=== PATIENT | female | born 1985 | race Two or more races ===

== ENCOUNTER 2016-09-04 04:35 | Inpatient (IN) | payer MEDICAID ==
[~2016-09-04] VITALS: Ht 162.6 cm; Wt 79.8 kg
[~2016-09-04 04:35] MED LIST: Docusate Sodium PO; IBUP800T28 PO; OXYC1TAB24 PO
[2016-09-04] MEDS ORDERED: Oxytocin 10 Unit/mL Inj IM PRN ×2 (05:20→10:55)
[2016-09-04] MEDS ORDERED: Hemorrhage Kit, Post Partum XX ONE ×2 (05:20→10:55)
[2016-09-04] MEDS ORDERED: fentaNYL-PF 50 mCg/mL 2 mL Inj IVPUSH PRN (05:20)
[2016-09-04] MEDS ORDERED: Methylergonovine 0.2 mg/mL Inj IM PRN ×2 (05:20→10:55)
[2016-09-04] MEDS ORDERED: Oxytocin 30 Units/500 mL LR 30 UNITS in IV Premix 1 EACH IV PRN ×3 (05:20→14:40)
[2016-09-04] MEDS ORDERED: Lactated Ringer's 1,000 ML IV PRN (05:20)
[2016-09-04] MEDS ORDERED: Carboprost 250 mCg/mL Inj IM PRN ×2 (05:20→10:55)
[2016-09-04] MEDS ORDERED: Sodium Chloride LOK Flush 10 mL Syringe IVFLUSH PRN (05:20)
[2016-09-04] MEDS ORDERED: Ondansetron 2 mg/mL 2 mL Inj IVPUSH PRN (05:20)
[2016-09-04] MEDS ORDERED: PREN-107 PO (05:25)
[2016-09-04 06:56] LABS: Mean Corpuscular Volume 90.4 fL (81-100)
--- NOTE | 2016-09-04 07:18 | PCM.HPOB ---
Subjective Date of Service: Sep 04, 2016 Referring Provider: Admitting Physician: Danny Almonte MD Primary Care Physician: Nopcp Attending Physician: Danny Almonte MD Chief Complaint Contractions History of Present History of Present Illness The patient is a 31-year-old female at 40 weeks 3 days with EDC of who presents in active labor. Patient states she started having mild contractions around 9 pm last night. She went to bed and woke up at 4 am this morning from more contractions and mild back and pelvic pain. Upon arrival to L& D her cervix has been dilated to 5 cm. Her last was uncomplicated and she delivered via . She did, however, suffer a third-degree perineal laceration. This last has been so far uncomplicated. Obstetrical Complications: None Past Medical History Hx Tobacco Use: No Hx Alcohol Use: Yes Hx Substance Use: No Past Family History Living Arrangement: with Family Allergy Coded Allergies: No Known Allergies (Unverified , 09/04/16) Exam Vital Signs Vital signs stable Exam FHR baseline 130's with moderate variability, accelerations present, no decelerations, UC's Q 2 min. Constitutional: Well-developed, Well-nourished HEENT: Atraumatic, Scleral Anicteric, Mucous Membr Moist/[place] Lungs: Clear to Auscultation, Normal Air Movement Heart: Exam Unremarkable, Regular Rate/Rhythm Abdomen: Gravid, No tenderness Lymphatic: Normal: Neck Palpation of Nodes Extremities: Pulses Palpable x4, Warm, No Edema Neurological/Psychiatric: Alert, Oriented X3, Cooperative, No Acute Distress Neuro: Grossly Neurologically Intact Labs/Diagnostics Labs labs revealed blood type A positive, antibody screen negative, varicella immune, rubella immune, RPR nonreactive, hepatitis B antigen negative , HIV nonreactive, and GBS negative. Maternal Blood Type: A Hx Rho(D) Immune Globulin: No Group B Strep Results: Negative Previous Infant with GBS: No Rubella: Immune Lab History: Negative for: Hx HIV OB Intrapartum Assessment/Plan Assessment The patient is a 31-year-old female at 40 weeks 3 days with EDC of who presents in active labor. heart rate tracing reassuring. 1. Admit to L&D. 2. Patient does not want epidural for pain control (h/o lower extremities numbness and back pain x 3 months after epidural use during her first labor). 3. Anticipate . Attending Statement The patient was seen and examined together with Dr. Kandice Hoffman DO on 2016 and I agree with the history, exam and plan as outlined in the note above. Kandice Hoffman DO Sep 04, 2016 07:18 YUE FERGUSON DO Sep 04, 2016 07:20 Donell Bravo MD Sep 04, 2016 11:03
[2016-09-04] MEDS ORDERED: Lactated Ringer's 1,000 ML IV SCH ×3 (09:43→10:53)
--- NOTE | 2016-09-04 09:45 | PCM.PNOBIP ---
Subjective Date of Service Sep 04, 2016 Delivery plan: Spontaneous Vaginal Delivery Subjective Patient has no complaints. Reports that she is not feeling contractions now. Gastrointestinal: No N/V Activity: Ambulating Independently Group B Strep Results: Negative Rubella: Immune Blood Type: A RH Type: Positive Labs Laboratory Tests 09/04/16 06:25: White Blood Count 13.6, Red Blood Count 4.17, Hemoglobin 12.5, Hematocrit 37.7, Mean Corpuscular Volume 90.4, Mean Corpuscular Hemoglobin 30.0, Mean Corpuscular Hemoglobin Concent 33.2, Red Cell Distribution Width 14.1, Platelet Count 210 Exam Vital Signs Vital Signs Contraction frequency in minutes: MVUs: Vital Signs: VS reviewed, stable Heart Tracings Heart Tones Baseline bpm Heart Rate Variability: Moderate Heart Rate Accelleration: Absent Heart Rate Category: I Tocometry/IUPC Contraction frequency in minutes: MVUs: Sterile Vaginal Exam 5/50/-3 Vertex, Head is well applied Cervical Dilation: 5 cms Cervical Effacement: 50 % Station: -3 Exam General: Alert, Oriented X3, Cooperative, No Acute Distress OB Intrapartum Assessment/Plan Problems: (1) Postmaturity , 40-42 weeks gestation Plan: AROM clear Continue to monitor Will start Pitocin if contractions space and no cervical change. I discussed plan with patient. Status: Acute ICD Code: O48.0 Intrapartum plan: Donell Eldridge MD Sep 04, 2016 09:45
[2016-09-04] MEDS ORDERED: Lactated Ringer's 500 ML IV ONE (10:34)
--- NOTE | 2016-09-04 10:34 | PCM.HPANE ---
Patient Data Surgeon Admitting Provider:Danny Almonte MD Attending Provider:Danny Almonte MD Primary Care Physician:Nopcp Other Provider: Reason for Visit Term Labor TERM LABOR Ht/WT & BMI Body Mass Index Allergies Coded Allergies: No Known Allergies (Unverified , 09/04/16) Diabetes History Hx Diabetes?: No Medications Reported Medications Vit37/Iron/Folic Acid (Prenata Chewable Tablet)1 Each Tab.chew1 Each PO 09/04/16 Discontinued Scripts oxyCODONE-Acetaminophen 5-325 mg 1 Tab Tablet1-2 Tab PO Q4H PRN For Pain #30 TABLET Ref 0 Prov:Donell Bravo MD 04/02/15 Ibuprofen 800 Mg [id number] Mg PO Q6H PRN For Pain #60 TABLET Ref 0 Prov:Donell Bravo MD 04/02/15 [Docusate Sodium] (Colace)100 MG CAPSULE No Conflict [id number] Mg PO BID #60 CAPSULE Ref 0 Prov:Donell Bravo MD 04/02/15 History Hx of Heart Problems?: No Hx of Respiratory Problem?: No Hx Neurologic Problems?: No Hx of GI Problems?: Yes Gastrointestinal History: Positive for:: Heartburn Female Hx: Positive for:: Currently Hx Diabetes: No Hx Alcohol Use: YesHx Substance Use: No Smoking Status: Former Smoker Stop/Bang Risk Assessment Category Category 1A: Patient has history of documented sleep apnea, and HAS NOT received any narcotic, sedative or anesthesia administration during this stay. Category 1B: Patient has history of documented sleep apnea, and HAS received any narcotic , sedative or anesthesia administration during this stay Category 2: Patient has SUSPECTED Obstructive Sleep Apnea, and HAS received any narcotic , sedative or anesthesia administration during this stay. Category 3: Patient has SUSPECTED Obstructive Sleep Apnea and HAS NOT received narcotic, sedative or anesthesia administration during this stay. Category 4: Outpatient in Procedural Areas with known sleep apnea or who screen positive for High Risk via the STOP/BANG questionnaire. Meds/Labs/Diagnostics Admission Meds Current Medications Lactated Ringer's (Lr) 1,000 ml @ 125 mls/hr Q8H IV Last administered on t 10:10; Start 09/04/16 at 09:43 Labs Test 09/04/16 06:25 White Blood Count 13.6th/mm3 (3.8-10.1) Red Blood Count 4.17mil/mm3 (3.90-5.20) Hemoglobin 12.5g/dL (12.0-15.6) Hematocrit 37.7% (35.0-46.0) Mean Corpuscular Volume 90.4fL (81-100) Mean Corpuscular Hemoglobin 30.0pg (27.0-35.0) Mean Corpuscular Hemoglobin Concent 33.2% (32.0-37.0) Red Cell Distribution Width 14.1% (12.3-15.4) Platelet Count 210bil/L (150-400) Plan Impression Patient chart reviewed, patient interviewed and anesthestic plan with risks, benefits, and alternatives discussed, and informed consent obtained. Other Patient delivered while I was placing an epidural for a different patient. Rae Garcia DO Sep 04, 2016 10:34
[2016-09-04] MEDS ORDERED: EPHEDrine Sulfate 50 mg/mL Inj IVPUSH PRN (10:35)
[2016-09-04] MEDS ORDERED: fentaNYL 2 mCg/mL-Bupiv 0.125% 100 ML EPIDURAL SCH (10:35)
[2016-09-04] MEDS ORDERED: Atropine 1 mg/10 mL (Code) Syringe IVPUSH PRN (10:35)
[2016-09-04] MEDS ORDERED: oxyCODONE-Acetamin 5-325 mg Tablet PO PRN (11:00)
--- NOTE | 2016-09-04 11:11 | PCM.OBVAG ---
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 Induction: Active labor, AROM, Progressed normally through labor Findings Obstetrical Findings: Antelope (Female), Cord (3 Vessel), Presentation (Vertex) , 1 minute (8), 5 minutes (9), Placenta (Intact/Normal), Perineal Laceration (2nd degree) Analgesia/Medications Procedural Analgesia: none Procedure Details Procedure Details 31 y/o at 40 weeks gestation who presented in early labor. She had AROM at 09:40 AT 5cm. She progressed to complete dilation at 10:12 and had a precipitous delivery with the nurse at 10:17. The placenta was delivered intact with a three vessel cord at 10:33hrs. On inspection of the vagina and perineum there was a second degree perineal/vaginal laceration that was repaired in the standard fashion with 0-Vicryl suture. Instrument, needle and sponge counts were correct times two at the end of the procedure. Specimen Local Lidocaine Blood Loss & Administration Estimated Blood Loss: 300 Blood Admin during procedure: No Post Procedure Plan Post delivery Condition: Mom stable Donell Bravo MD Sep 04, 2016 11:11
[2016-09-04] MEDS ORDERED: Oxytocin 30 Units/500 mL LR Premix IV ONE (13:15)
[2016-09-04] MEDS ORDERED: Witch Hazel-Glycerin Pads TOPICAL PRN (14:40)
[2016-09-04] MEDS ORDERED: LANOlin HPA 7 Gm Ointment TOPICAL PRN (14:40)
[2016-09-04] MEDS ORDERED: Benzocaine (Dermoplast) 20% 60 Gm Spray TOPICAL PRN (14:40)
[2016-09-04] MEDS: Ascorbic Acid 500 mg Tablet PO SCH (18:50)
--- NOTE | 2016-09-05 07:44 | PCM.DIOB ---
Kandice Hoffman DO 09/05/16 0744: Obstetrical Disch Instruction Date of Service: Sep 05, 2016 Dates of Hospitalization Date of Hospital Admission Sep 04, 2016 at 05:20 Providers Admitting Physician: Danny Almonte MD Primary Care Physician: Franky Attending Physician: Danny Almonte MD Discharge Diagnosis Discharge Diagnosis 1. Gestational at 40 weeks and 3 days s/p spontaneous vaginal delivery 2. Second degree perineal/vaginal laceration Problems: (1) Postmaturity , 40-42 weeks gestation Status: Acute ICD Code: O48.0 Diet Discharge Diet: No restrictions Activity Discharge Activity-General: Pelvic Rest for 6 weeks, Try not to overdue, Be up and about, Balance rest and activity, No lifting >15 pounds for 2 weeks Dressing and Incisional Care Hygiene: Perineal care Follow Up Plan Follow Up Plan Please follow up with [facility] in 2-3 weeks Call your provider for: Fever or Chills, Shortness of breath, Heavy vaginal bleeding, Heavy bleeding, Epigastric pain, Excessive constipation, Vaginal discomfort, Red painful breasts Addie Parrish MD 09/14/16 1357: Obstetrical Disch Instruction Attending Statement I saw and evaluated patient. I agree with above plan. Kandice Hoffman DO Sep 05, 2016 07:44 Addie Parrish MD Sep 14, 2016 13:57
[2016-09-05] MEDS ORDERED: DOCU-41 PO (07:45)
--- NOTE | 2016-09-05 07:56 | PCM.DC.OB ---
Obstetrical Discharge Summary Date of Service Sep 05, 2016 Date of hospital admission Sep 04, 2016 at 05:20 Date of Discharge: Sep 05, 2016 Providers Admitting Physician: Danny Almonte MD Primary Care Physician: Nophilary Attending Physician: Danny Almonte MD Diagnosis at Time of Discharge 1. Gestational at 40 weeks and 3 days s/p spontaneous vaginal delivery 2. Second degree perineal/vaginal laceration Problems: (1) Postmaturity , 40-42 weeks gestation Status: Acute ICD Code: O48.0 Brief History and Physical: The patient is a 31-year-old female at 40 weeks 3 days with EDC of who presented in active labor. Patient stated she started having mild contractions around 9 pm night before the admission. She went to bed and woke up at 4 am next morning from more contractions and mild back and pelvic pain. Upon arrival to L&D her cervix has been dilated to 5 cm. Her last was uncomplicated and she delivered via . She did, however, suffer a third- degree perineal laceration. This last has been so far uncomplicated. She delivered a life female through spontaneous vaginal delivery on 2016. Patient delivered female, 3 vessel cord, infant presentation was vertex, 1 minute (8), 5 minutes (9). She had a second degree perineal/vaginal laceration that has been repaired. Mother and the baby are doing fine. The patient is ambulating without assist, tolerating oral intake without nausea and/or vomiting, she is urinating without any difficulties, she is passing flatus, she has minimal pain, her lochia is light. Her vital signs are stable. Her cardiovascular and respiratory exam is unremarkable. Her abdomen is soft and nontender, her uterus is firm. Her bowel sounds are normal. There is no peripheral edema and her pulses are normal. Hospital Course: 31 y/o at 40 weeks and 3 days of gestation who presented in early labor. She had AROM at 09:40 AT 5cm. She progressed to complete dilation at 10 :12 and had a precipitous delivery with the nurse at 10:17. Patient delivered female, 3 vessel cord, infant presentation was vertex, 1 minute (8 ), 5 minutes (9), placenta was intact/normal. The placenta was delivered intact with a three vessel cord at 10:33hrs. On inspection of the vagina and perineum there was a second degree perineal/vaginal laceration that was repaired in the standard fashionl with 0-Vicryl suture. Ascorbic Acid (Vitamin C) 500 Mg Capsule.er 500 MG PO DAILY Prescribed by: JAMIR HOFFMAN DO Docusate Sodium (Colace) 100 Mg Capsule 100 MG PO BID PRN PRN For Constipation Prescribed by: JAMIR HOFFMAN DO Ferrous Sulfate (Ferrous Sulfate) 325 Mg Tablet 325 MG PO DAILY Prescribed by: JAMIR HOFFMAN DO Ibuprofen (Ibuprofen) 400 Mg Tablet 400 MG PO QID PRN PRN For Pain Prescribed by: JAMIR HOFFMAN DO Vit37/Iron/Folic Acid (Prenata Chewable Tablet) 1 Each Tab.chew 1 EACH PO (Reported) Last Taken: Unknown Dose on 09/03/16 0900 Disposition Home Follow-up plan Please [facility] up [facility] in 2-3 weeks. Discharge Diet: No restrictions Discharge Activity-General: Pelvic Rest for 6 weeks, Try not to overdue, Be up and about, Balance rest and activity, No lifting >15 pounds for 2 weeks Attending Statement: I saw and evaluated patient. I agree with above plan. Jamir Hoffman DO Sep 05, 2016 07:56 Addie Parrish MD Sep 14, 2016 14:05
[2016-09-05 08:00] LABS: Mean Corpuscular Hemoglobin 29.9 pg (27.0-35.0); Mean Corpuscular Volume 91.3 fL (81-100)
[2016-09-05] MEDS ORDERED: ASCO500C6 PO (08:16)
[2016-09-05] MEDS ORDERED: FERR-83 PO (08:16)
[2016-09-05] MEDS ORDERED: IBUP400T22 PO (08:17)
[2016-09-05] MEDS: Ascorbic Acid 500 mg Tablet PO SCH (09:38)
[2016-09-05 13:12] VITALS: BP 103/58; PULSE 84; RESP 12
== END 2016-09-05 15:25 | disposition home or self-care (01) | DRG 775 ==
LOC: FBCO 04:35 → FBC 05:20
PROVIDERS: ADMIT Legal Medicine; ATTEND Legal Medicine
PROC: 10E0XZZ Delivery of Products of Conception, External Approach (ICD-10-PCS; principal; 2016-09-04)
PROC: 0KQM0ZZ Repair Perineum Muscle, Open Approach (ICD-10-PCS; 2016-09-04)
PROC: 10907ZC Drainage of Amniotic Fluid, Therapeutic from Products of Conception, Via Natural or Artificial Opening (ICD-10-PCS; 2016-09-04)
DX: O62.3 Precipitate labor (principal); O70.1 Second degree perineal laceration during delivery; Z3A.40 40 weeks gestation of pregnancy; Z37.0 Single live birth